=== PATIENT | female | born 1990 | race Two or more races ===

== ENCOUNTER 2020-06-23 12:58 | Emergency (ER) | payer MEDICAID, OTHER ==
[~2020-06-23] VITALS: Ht 162.6 cm; Wt 74.8 kg
[2020-06-23 13:22] VITALS: BP 101/69
[2020-06-23 14:51] LABS: Basophils # (auto) 0 10 ^3/uL (0-0.2); Basophils % (auto) 0.5 % (0.0-2.0); Eosinophils # (auto) 0.1 10 ^3/uL (0-0.8); Eosinophils % (auto) 0.9 % (0.0-7.0); Hematocrit 41.9 % (36.0-46.0); Hemoglobin 14.5 g/dL (12.2-16.2); Lymphocytes # (auto) 1.8 10 ^3/uL (0.4-5.4); Lymphocytes % (auto) 19.7 % (10.0-50.0); Mean Corpuscular Hemoglobin 31.1 pg (28.0-32.0); Mean Corpuscular Hgb Conc. 34.7 g/dL (32.0-36.0); Mean Corpuscular Volume 89.8 fL (80.0-100.0); Monocytes # (auto) 0.6 10 ^3/uL (0-1.3); Monocytes % (auto) 6.1 % (0.0-12.0); Neutrophils # (auto) 6.7 10 ^3/uL (1.6-8.6); Neutrophils % (auto) 72.8 % (37.0-80.0); Platelet Count (auto) 369 10^3/uL (140-450); Red Blood Cells 4.67 10^6/uL (4.0-5.20); Red Cell Distribution Width 13.2 % (11.8-14.3); White Blood Cell 9.1 10^3/uL (4.4-10.8)
[2020-06-23 15:02] LABS: Albumin 3.1 g/dL (3.4-5.0); Calcium 8.7 mg/dL (8.5-10.1); Magnesium 2.4 mg/dL (1.6-2.6); Potassium 3.9 mmol/L (3.5-5.1)
[2020-06-23 15:07] LABS: BUN/Creatinine Ratio 12.7; Bilirubin, Total 0.2 mg/dL (0.2-1.0); Total Protein 8.3 g/dL (6.4-8.2)
== END 2020-06-23 17:32 | disposition home or self-care (01) ==
LOC: ER 12:58
DX: O26.891 Other specified pregnancy related conditions, first trimester (principal); R00.2 Palpitations; Z3A.11 11 weeks gestation of pregnancy
CPT/HCPCS: 36415; 80053; 83735; 85025; 93005

== ENCOUNTER 2020-12-11 12:14 | Observation (INO) | payer MEDICAID ==
[2020-12-11] MEDS ORDERED: PREN-96 PO (14:25)
== END 2020-12-11 14:40 | disposition home or self-care (01) ==
LOC: LDRP 12:14
PROVIDERS: ADMIT Obstetrics & Gynecology; ATTEND Obstetrics & Gynecology
DX: O24.419 Gestational diabetes mellitus in pregnancy, unspecified control (principal); O36.5930 Maternal care for other known or suspected poor fetal growth, third trimester, not applicable or unspecified; Z3A.37 37 weeks gestation of pregnancy
CPT/HCPCS: 59025; 76818; 81002; 82948; 82962; G0378

== ENCOUNTER 2020-12-18 14:27 | Observation (INO) | payer MEDICAID ==
[~2020-12-18 14:27] MED LIST: PREN-96 PO
== END 2020-12-18 15:49 | disposition home or self-care (01) ==
LOC: LDRP 14:27
PROVIDERS: ADMIT Specialist; ATTEND Specialist
DX: O24.419 Gestational diabetes mellitus in pregnancy, unspecified control (principal); Z3A.38 38 weeks gestation of pregnancy
CPT/HCPCS: 59025; 76818; 81002; 82948; 82962; G0378

== ENCOUNTER 2020-12-22 18:45 | Observation (INO) | payer MEDICAID | END 2020-12-22 20:18 | disposition home or self-care (01) | LOC: LDRP 18:45 | PROVIDERS: ADMIT Obstetrics & Gynecology; ATTEND Obstetrics & Gynecology | DX: O24.419 Gestational diabetes mellitus in pregnancy, unspecified control (principal); Z3A.38 38 weeks gestation of pregnancy | CPT/HCPCS: 59025; 76818; 81002; 82948; 82962; G0378 ==

== ENCOUNTER 2020-12-25 15:32 | Observation (INO) | payer MEDICAID | END 2020-12-25 16:20 | disposition home or self-care (01) | LOC: LDRP 15:32 | PROVIDERS: ADMIT Specialist; ATTEND Specialist | DX: O24.419 Gestational diabetes mellitus in pregnancy, unspecified control (principal); Z3A.39 39 weeks gestation of pregnancy | CPT/HCPCS: 59025; 76818; 81002; 82948; G0378 ==

== ENCOUNTER 2021-01-01 11:59 | Observation (INO) | payer MEDICAID ==
[2021-01-01] MEDS ORDERED: FOLI1TAB6 PO (13:44)
[2021-01-01] MEDS ORDERED: DOCU-94 PO (13:44)
== END 2021-01-01 14:04 | disposition home or self-care (01) ==
LOC: LDRP 11:59
PROVIDERS: ADMIT Obstetrics & Gynecology; ATTEND Obstetrics & Gynecology
DX: O24.419 Gestational diabetes mellitus in pregnancy, unspecified control (principal); Z3A.40 40 weeks gestation of pregnancy; Z79.899 Other long term (current) drug therapy
CPT/HCPCS: 59025; 76818; 81002; 82948; 82962; G0378

== ENCOUNTER 2021-01-03 02:30 | Observation (INO) | payer MEDICAID ==
[~2021-01-03 02:30] MED LIST changes: +DOCU-94 PO; +FOLI1TAB6 PO
== END 2021-01-03 05:42 | disposition home or self-care (01) ==
LOC: LDRP 02:30
PROVIDERS: ADMIT Obstetrics & Gynecology; ATTEND Obstetrics & Gynecology
DX: O42.92 Full-term premature rupture of membranes, unspecified as to length of time between rupture and onset of labor (principal); O62.9 Abnormality of forces of labor, unspecified; O24.419 Gestational diabetes mellitus in pregnancy, unspecified control; Z3A.40 40 weeks gestation of pregnancy; Z90.721 Acquired absence of ovaries, unilateral
CPT/HCPCS: 59025; 76818; 81002; 82948; 82962; 84112; G0378; Q0114

== ENCOUNTER 2021-01-04 09:02 | Observation (INO) | payer MEDICAID | END 2021-01-04 11:13 | disposition home or self-care (01) | LOC: LDRP 09:02 | PROVIDERS: ADMIT Obstetrics & Gynecology; ATTEND Obstetrics & Gynecology | DX: O48.0 Post-term pregnancy (principal); Z20.822 Contact with and (suspected) exposure to COVID-19; O42.92 Full-term premature rupture of membranes, unspecified as to length of time between rupture and onset of labor; O24.419 Gestational diabetes mellitus in pregnancy, unspecified control; O62.9 Abnormality of forces of labor, unspecified; O26.893 Other specified pregnancy related conditions, third trimester; N89.8 Other specified noninflammatory disorders of vagina; Z3A.40 40 weeks gestation of pregnancy; Z90.721 Acquired absence of ovaries, unilateral | CPT/HCPCS: 59025; 76818; 81002; 82962; 84112; G0378; Q0114 ==

== ENCOUNTER 2021-01-04 20:10 | Inpatient (IN) | payer MEDICAID ==
[~2021-01-04] VITALS: Ht 164 cm; Wt 74.4 kg
[2021-01-04] MEDS ORDERED: TERBUTALINE SULFATE 1 MG/ML 1ML VIAL SC ONE (23:00)
[2021-01-04] MEDS ORDERED: PHISODERM TOP SOLN 240ML BTL TOP PRN (23:00)
[2021-01-04] MEDS ORDERED: LACT. RINGERS/OXYTOCIN 20UNITS 1,000 ML IV ONE (23:00)
[2021-01-04] MEDS ORDERED: BUTORPHANOL TARTRATE 2 MG/1 ML VIAL IV PRN ×2 (23:00)
[2021-01-04] MEDS ORDERED: PROMETHAZINE HCL 25 MG/ML 1ML IM PRN (23:00)
[2021-01-04] MEDS ORDERED: LIDOCAINE 2%HCL (LOCAL ANESTH.) INJ 20ML MDV IJ ONE (23:00)
[2021-01-04] MEDS ORDERED: METHYLERGONOVINE MALEATE 0.2 MG/ML AMP IM ONE (23:00)
[2021-01-04] MEDS ORDERED: DERMOPLAST 60ML BOTTLE TOP PRN (23:00)
[2021-01-04] MEDS ORDERED: WITCH HAZEL-GLYCERIN PAD TOP PRN (23:00)
[2021-01-04 23:53] LABS: Basophils # (auto) 0.1 10 ^3/uL (0-0.2); Eosinophils # (auto) 0.2 10 ^3/uL (0-0.8); Eosinophils % (auto) 1.4 % (0.0-7.0); Hematocrit 36.8 % (36.0-46.0); Hemoglobin 12.4 g/dL (12.2-16.2); Lymphocytes # (auto) 1.5 10 ^3/uL (0.4-5.4); Lymphocytes % (auto) 12.7 % (10.0-50.0); Mean Corpuscular Hemoglobin 30.5 pg (28.0-32.0); Mean Corpuscular Hgb Conc. 33.8 g/dL (32.0-36.0); Mean Corpuscular Volume 90.2 fL (80.0-100.0); Monocytes # (auto) 0.4 10 ^3/uL (0-1.3); Monocytes % (auto) 3.8 % (0.0-12.0); Neutrophils # (auto) 9.4 10 ^3/uL (1.6-8.6); Neutrophils % (auto) 81.1 % (37.0-80.0); Nucleated Red Blood Cells % 0.1 %; Platelet Count (auto) 355 10^3/uL (140-450); Red Blood Cells 4.08 10^6/uL (4.0-5.20); Red Cell Distribution Width 14.5 % (11.8-14.3); White Blood Cell 11.6 10^3/uL (4.4-10.8)
[2021-01-04] MEDS: LACTATED RINGER'S 1,000 ML IV SCH (23:59)
[2021-01-05 00:10] LABS: INR 0.92 (0.9-1.15); Partial Thromboplastin Time 26.5 sec (23.0-31.2)
[2021-01-05 00:12] LABS: Albumin 2.5 g/dL (3.4-5.0); BUN/Creatinine Ratio 12.3; Calcium 7.7 mg/dL (8.5-10.1); Potassium 3.7 mmol/L (3.5-5.1)
[2021-01-05 00:14] LABS: Alcohol, Urine < 3.0 mg/dL (0-10); Amphetamine Screen, Urine NEGATIVE (NEGATIVE); Barbiturate Scree,Urine NEGATIVE (NEGATIVE); Benzodiazephine Screen, Urine NEGATIVE (NEGATIVE); Cannabinoid Screen, Urine NEGATIVE (NEGATIVE); Cocaine Screen, Urine NEGATIVE (NEGATIVE); Opiate Scree,Urine NEGATIVE (NEGATIVE); Phencyclidine Screen, Urine NEGATIVE (NEGATIVE)
[2021-01-05 00:15] LABS: Bilirubin, Total 0.2 mg/dL (0.2-1.0); Total Protein 7.3 g/dL (6.4-8.2)
[2021-01-05] MEDS ORDERED: LACT. RINGERS/OXYTOCIN 20UNITS 1,000 ML IV SCH (06:00)
[2021-01-05] MEDS ORDERED: ePHEDrine SULFATE 50 MG/ML AMP IV ONE (06:45)
[2021-01-05] MEDS ORDERED: ROPIVACAINE HCL 200 ML EPI SCH (06:45)
[2021-01-05] MEDS ORDERED: LACTATED RINGER'S 500 ML IV ONE (06:45)
[2021-01-05] MEDS ORDERED: fentaNYL CITRATE 100 MCG/2 ML VL IV ONE (06:45)
[2021-01-05] MEDS: ceFAZolin 1GM/50ML 50 ML IV SCH ×3 (08:00→20:13)
[2021-01-05] MEDS: LACTATED RINGER'S 1,000 ML IV SCH ×2 (13:06→13:07)
[2021-01-05] MEDS ORDERED: IBUPROFEN 600 MG TAB PO PRN (17:00)
[2021-01-05 19:01] VITALS: BP 103/61
[2021-01-05 22:40] VITALS: BP 107/56
[2021-01-06] MEDS: IBUPROFEN 800 MG TAB PO PRN ×3 (00:24→22:54)
[2021-01-06 02:54] VITALS: BP 105/55
[2021-01-06] MEDS: ceFAZolin 1GM/50ML 50 ML IV SCH ×3 (04:57→19:47)
[2021-01-06 06:35] VITALS: BP 100/56
[2021-01-06 08:07] LABS: RPR Non Reactive (Non Reactive)
[2021-01-06 11:22] VITALS: BP 113/57
[2021-01-06 15:00] VITALS: BP 118/63
[2021-01-06 19:00] VITALS: BP 110/68
[2021-01-06 23:12] VITALS: BP 116/61
[2021-01-07 03:16] VITALS: BP 104/53
[2021-01-07 06:30] VITALS: BP 120/48
[2021-01-07] MEDS: IBUPROFEN 800 MG TAB PO PRN (07:46)
[2021-01-07 11:15] VITALS: BP 120/40
== END 2021-01-07 11:50 | disposition home or self-care (01) | DRG 560 ==
LOC: LDRP 20:10 → OBSVTOIN 23:00
PROVIDERS: ADMIT Obstetrics & Gynecology; ATTEND Obstetrics & Gynecology
PROC: 10D07Z3 Extraction of Products of Conception, Low Forceps, Via Natural or Artificial Opening (ICD-10-PCS; principal; 2021-01-05)
PROC: 0W8NXZZ Division of Female Perineum, External Approach (ICD-10-PCS; 2021-01-05)
DX: O48.0 Post-term pregnancy (principal); O69.81X0 Labor and delivery complicated by cord around neck, without compression, not applicable or unspecified; Z20.822 Contact with and (suspected) exposure to COVID-19; Z37.0 Single live birth; Z79.899 Other long term (current) drug therapy; Z3A.40 40 weeks gestation of pregnancy
CPT/HCPCS: 36415; 59025; 59409; 62282; 76818; 80053; 80307; 81002; 82962; 84112; 85025; 85610; 85730; 86592; 86850; 86900; 86901; 87426; 96360; 96361; 96366; 96374; 96375; G0378; J0690; J2590